=== PATIENT | male | born 1955 | race Caucasian/White ===

== ENCOUNTER 2020-04-15 11:24 | Emergency (ER) | payer OTHER ==
[~2020-04-15] VITALS: Ht 182.9 cm; Wt 108.9 kg
[2020-04-15 11:46] VITALS: BP 177/78
[2020-04-15 11:51] VITALS: BP 177/78
[2020-04-15] MEDS ORDERED: TORADOL IM STA (11:51)
--- NOTE | 2020-04-15 11:54 | NUR ---
ARRIVAL PATIENT ARRIVED TO ED5 VIA W/C, C/O OF LEFT KNEE PAIN SINCE YESTERDAY, PATIENT STATES HE WAS WALKING IN A DITCH YESTERDAY AND THINKS HE MIGHT HAVE TWISTED HIS KNEE, PAIN PERSISTED TODAY AT WORK AND DECIDED TO COME TO THE ED FOR EVAL, DOCTOR KRUNAL TO THE ROOM TO SEE PATIENT.
[2020-04-15] MEDS ORDERED: TORADOL ONE (11:56)
--- NOTE | 2020-04-15 11:56 | ER.PDOC ---
General Chief Complaint: Extremities Stated Complaint: LEFT KNEE PAIN Time seen by MD: 11:54 Source: patient Exam Limitations: no limitations History of Present Illness Initial Comments Left knee pain after twisting it yesterday. Onset: yesterday Where: home Context: twist Severity: moderate Allergies: Coded Allergies: No Known Allergies (Unverified , 04/15/20) Past Medical History Medical History: cardiac problems, hypertension, thyroid disease Surgical History: coronary bypass surgery, other Social History Alcohol Use: occassionally Drug Use: none Review of Systems Constitutional: no symptoms reported Respiratory: no symptoms reported Cardiovascular: no symptoms reported Gastrointestinal: no symptoms reported Genitourinary: no symptoms reported Musculoskeletal: see HPI All Other Systems: Reviewed and Negative Physical Exam General Appearance: Alert, No Apparent Distress Foot: nml inspection, non-tender, nml color/temp, skin intact Ankle: nml inspection, non-tender, nml ROM, no joint swelling, skin intact Knee: nml inspection, non-tender, nml ROM, tenderness (left knee without swelling or deformity) Thigh/Hip: nml inspection Gait: limited by pain Neuro/Vasc/Tendon: sensation nml, motor nml, no vascular compromise, tendon function nml Skin: warm/dry Head/ENT: nml inspection, pharynx nml Neck/Back: nml inspection, non-tender Abdomen: non-tender, pelvis stable Results/Orders Results/Orders Orders - ELIAZAR HECTOR MD Xr Knee Lt 2v (04/15/20 11:51) Ketorolac Tromethamine (Toradol) (04/15/20 11:51) Ketorolac Tromethamine (Toradol) (04/15/20 11:56) Vital Signs Date Time Temp Pulse Resp B/P (MAP) Pulse Ox O2 Delivery O2 Flow Rate FiO2 04/15/20 11:51 98.1 75 18 177/78 (111) 94 Room Air 04/15/20 11:46 98.1 75 18 94 04/15/20 11:46 98.1 75 18 177/78 (111) 94 Room Air 04/15/20 11:46 98.1 75 18 Administered Medications Medications (Trade) Dose Ordered Sig/Yaneth Route PRN Reason Start Time Stop Time Status Last Admin Dose Admin Ketorolac Tromethamine (Toradol) 60 mg STAT STAT IM 04/15/20 11:51 128/20 11:54 DC 04/15/20 12:00 60 MG EKG/XRAY/CT/US XRAY Comments: No acute bony abnormality of left knee ER DEPART Departure Time of Disposition: 12:10 Disposition: 01 HOME, SELF-CARE Impression: Primary Impression: Left knee sprain Additional Impression: Left knee injury Condition: Stable Referrals: PCP,UNKNOWN (PCP) PRIMARY CARE PROVIDER Additional Instructions: Ice Ibuprofen Tramadol F/U with your PCP in 1 week Return to ED if worsening pain or concerns Duration or Time Spent with Pa: 20 min Problem Qualifiers Primary Impression: Left knee sprain Encounter type: initial encounter Involved ligament of knee: other ligament Qualified Codes: S83.8X2A - Sprain of other specified parts of left knee, initial encounter Additional Impression: Left knee injury Encounter type: initial encounter Qualified Codes: S89.92XA - Unspecified injury of left lower leg, initial encounter ELIAZAR HECTOR MD Apr 15, 2020 11:56
--- NOTE | 2020-04-15 12:15 | DIREP ---
PROCEDURE:XRAY KNEE 2 VWS-LT COMPARISON:[facility], CR, XRAY KNEE 1-2 VWS-LT, 01/18/2016, 02:54 PM. INDICATIONS:pain/injury FINDINGS: BONES:No fracture is seen. JOINTS:Mild narrowing is seen of the medial compartment. No joint effusion is seen. SOFT TISSUES:Multiple surgical clips are seen in the soft tissues of the posterior and medial knee. OTHER:No additional findings. CONCLUSION:There are mild degenerative changes in the medial compartment. No fracture is seen. Dictated by: Billy Soto M.D. on 04/15/2020 at 12:12 PM
== END 2020-04-15 12:15 | disposition home or self-care (01) ==
LOC: ER 11:24
DX: S83.92XA Sprain of unspecified site of left knee, initial encounter (principal); I10 Essential (primary) hypertension; Z79.1 Long term (current) use of non-steroidal anti-inflammatories (NSAID); X50.1XXA Overexertion from prolonged static or awkward postures, initial encounter; Y93.89 Activity, other specified; Y92.89 Other specified places as the place of occurrence of the external cause; Y99.8 Other external cause status
CPT/HCPCS: 73560; 96372; 99283; J1885